=== PATIENT | female | born 1945 | race Hispanic/Latino ===

== ENCOUNTER 2017-08-13 06:49 | Observation (INO) | payer MEDICARE ==
[2017-08-13 07:54] LABS: Basophils % (Auto) 0.7 % (0.0-1.8); Eosinophils % (Auto) 2.8 % (0.0-4.3); Hematocrit 34.1 % (30.3-42.9); Hemoglobin 11.7 gm/dl (10.1-14.3); Mean Corpuscular HGB Conc 34 % (30-34); Mean Corpuscular Hemoglobin 31 pg (28-32); Mean Corpuscular Volume 90 fl (79-97); Platelet Count 229 K/mm3 (140-440); Red Blood Count 3.78 M/mm3 (3.65-5.03); Red Cell Distribution Width 13.5 % (13.2-15.2)
[2017-08-13] MEDS ORDERED: ECOTRIN PO ONE (08:00)
[2017-08-13] MEDS ORDERED: NACL 0.9% 500 ML 500 ML IV SCH (08:00)
[2017-08-13 08:02] LABS: INR 0.97 (0.87-1.13)
[2017-08-13 08:05] LABS: Calcium 9.9 mg/dL (8.4-10.2); Chloride 99.3 mmol/L (98-107)
[2017-08-13] MEDS: PLAVIX PO SCH (09:08)
[2017-08-13] MEDS ORDERED: HEPARIN/NS 5000 UNIT/500ML(CATH LAB) 1,500 ML IR ONE (09:38)
[2017-08-13] MEDS ORDERED: XYLOCAINE 1% 20 mL ONE (09:38)
[2017-08-13] MEDS: VERSED ONE ×3 (10:01→10:29)
[2017-08-13] MEDS: SUBLIMAZE ONE ×3 (10:01→10:29)
[2017-08-13] MEDS: HEPARIN 10,000 UNITS/10 ML ONE ×3 (10:26→11:10)
[2017-08-13] MEDS: NITROGLYCERIN SYRINGE 6 ML ONE ×2 (10:38→10:41)
[2017-08-13] MEDS ORDERED: PLAVIX ONE (11:10)
[2017-08-13] MEDS ORDERED: SUBLIMAZE ONE (11:10)
[2017-08-13] MEDS ORDERED: ALUM-MAG HYDROX-SIMETH 200-200-20MG/5ML ONE (11:11)
[2017-08-13] MEDS ORDERED: ULTRAM PO PRN (11:26)
[2017-08-13] MEDS ORDERED: ZOFRAN IV PRN (11:26)
[2017-08-13] MEDS ORDERED: AMBIEN PO PRN (11:26)
--- NOTE | 2017-08-13 11:38 | Event Note ---
Date: 08/13/17 Patient presented for outptaient R/l cath. Findings: 1. 100% occlusive instent restenosis of the mid LAD. 2. Successful PCI with additional 2.75-3.5mm DE stents deployed. 3. LVEF 65-70%. Plan: Overnight observation 23 hrs. Discharge tomorrow. On discharge, needs addition of atorvastatin to current home regimen.
[2017-08-13] MEDS ORDERED: NACL 0.9% 1000 ML 1,000 ML IV SCH (12:00)
[2017-08-13] MEDS: ZESTRIL PO SCH (12:14)
[2017-08-13] MEDS: IMDUR PO SCH (12:14)
--- NOTE | 2017-08-13 12:35 | Cardiac Catherization Report ---
CARDIAC CATHETERIZATION AND CORONARY ANGIOPLASTY PROCEDURES PERFORMED: 1. Right heart catheterization. 2. Left heart catheterization. 3. Selective left and right coronary angiography. 4. Left ventricular angiography. 5. Angioplasty and coronary stenting of the mid left anterior descending artery. The patient was referred for right and left heart catheterization due to progressive exertional shortness of breath. It was noted that she has a history of coronary artery disease with previous 2.5 mm Xience drug-eluting stent deployed to the mid LAD in 2010. DESCRIPTION OF PROCEDURE: The patient was prepped and draped in a sterile fashion after informed consent. The right femoral artery and vein were both entered using the Seldinger technique. A 6-Welsh sheath was placed in the artery and an 8 Welsh sheath in the vein. A [place]-Jordyn catheter was advanced through the femoral vein, to the pulmonary artery position. Following that, a pigtail catheter was inserted into the femoral artery and retrograde into the left ventricle. Simultaneous right and left heart filling pressures were measured. Cardiac output was measured using the thermodilution method. The [place]-Jordyn catheter was then withdrawn and right heart pressures were recorded. The pigtail was then used to perform left ventricular angiography, following which it was withdrawn and transaortic pressure gradient was recorded. We then performed selective left and right coronary angiography using #4 right and left Montrell catheters. FINDINGS: HEMODYNAMICS: Mean right atrial pressure was 15. Right ventricular pressure was 48/20. Pulmonary artery pressure was 50/30. The mean pulmonary artery wedge pressure was 25, with V waves of 35. Left ventricular end diastolic pressure was 25. Ascending aortic pressure was 190/98. There was no significant pressure gradient on pullback across the aortic valve. Cardiac output was 4.1 liters per minute. CORONARY ANGIOGRAPHY: The left main coronary artery was angiographically normal. The left anterior descending artery was occluded in its mid segment. This was a long segment of complete occlusion of the mid LAD within the previous stent. The occlusion had the appearance of diffuse occlusive in-stent restenosis. It will be noted that the proximal stent border was adjacent to a large mid diagonal branch of the LAD. There was mild narrowing of the ostium of the mid diagonal branch. The circumflex artery and its obtuse marginal branches contained mild diffuse irregularities. The right coronary artery was dominant. This vessel contained a long segment of mild mid disease, with a 20-30% luminal stenosis. Otherwise, these vessel fed collaterals to the mid and distal LAD beyond the occluded mid LAD segment. There was normal left ventricular systolic function with ejection fraction 65-70%. Notably, there was normal wall motion of the anterior wall and apex of the left ventricle. CORONARY ANGIOPLASTY: After review of the angiograms, and noting significant viability of the anterior wall of the left ventricle despite the chronic total occlusion, we recommended ad hoc coronary angioplasty of the mid LAD, occlusive in-stent restenosis. We selected a number 3.5 XB guiding catheter and advanced to the left coronary ostium. A 0.014 inch ____ wire was then advanced into the ventricle, successfully penetrating through the occluded mid segment. Following wire placement in the distal vessel, we used a 2.5 mm balloon catheter to predilate the stenosis. Following predilatation, we reestablished MARTINA 3 flow to the LAD. There was significant residual disease and diffuse scar tissue within the occluded segment. We then deployed a 2.75 x 26 mm Resolute drug-eluting stent, covering the entire lesional segment and beyond the previous stent border. Following deployment of the first stent, we deployed another guidewire into the diagonal branch. We then followed this with another 3.5 x 12 mm Resolute stent into the mid LAD, in juxtaposition to the proximal border of the previous stent. The 3.5 stent was then deployed to optimal pressures. The side branch guidewire was then retrieved, and reinserted into the side branch, following which a 2.5 mm balloon catheter was used to dilate the ostium of the diagonal branch through the stent struts. Both wires were then retrieved, and post-intervention angiograms revealed an excellent angiographic result, 0 residual stenosis through the LAD, 0 residual stenosis of the ostium of the diagonal branch, and MARTINA 3 flow into both vessels. The procedure was well tolerated by the patient and there were no complications. CONCLUSION: 1. Moderate to severe increase in right and left heart filling pressures, moderate pulmonary hypertension. 2. V waves on pulmonary arterial wedge pressure, consider echocardiography for assessment of mitral regurgitation. 3. Coronary artery disease with 100% occlusive restenosis of the mid LAD stent. The index stent dates back to 2010. 4. Normal to hyperdynamic left ventricular systolic function with ejection fraction 65-70%. Viability of the anterior wall is established by normal wall motion. 5. Successful ad hoc angioplasty and stenting of the mid LAD, excellent angiographic result with deployment of additional serial 2.75-3.5 mm Resolute drug-eluting stents. JOB# [id number] MARTA/CHRISTIANA
[2017-08-13] MEDS: LEXAPRO PO SCH (15:37)
[2017-08-13] MEDS: LOPRESSOR PO SCH ×2 (16:01→22:37)
[2017-08-13] MEDS ORDERED: NEURONTIN PO SCH (18:00)
[2017-08-14 06:09] LABS: Basophils % (Auto) 0.6 % (0.0-1.8); Eosinophils % (Auto) 2.5 % (0.0-4.3); Hematocrit 32.3 % (30.3-42.9); Mean Corpuscular HGB Conc 34 % (30-34); Mean Corpuscular Hemoglobin 31 pg (28-32); Mean Corpuscular Volume 90 fl (79-97); Platelet Count 233 K/mm3 (140-440); Red Blood Count 3.61 M/mm3 (3.65-5.03); Red Cell Distribution Width 13.7 % (13.2-15.2); White Blood Count 7.9 K/mm3 (4.5-11.0)
[2017-08-14 06:29] LABS: Creatine Kinase MB 1.1 ng/mL (0.0-4.0)
[2017-08-14 06:33] LABS: Anion Gap 19 mmol/L; BUN/Creatinine Ratio 11; Blood Urea Nitrogen 15 mg/dL (7-17); Calcium 9.8 mg/dL (8.4-10.2); Carbon Dioxide 26 mmol/L (22-30); Chloride 104.1 mmol/L (98-107); Creatine Kinase 68 units/L (30-135); Glucose 155 mg/dL (65-100); Sodium 144 mmol/L (137-145)
[2017-08-14 06:37] LABS: Potassium 4.9 mmol/L (3.6-5.0)
--- NOTE | 2017-08-14 08:07 | XRay Report ---
AP chest x-ray. History: Post PCI. Findings: The heart and lungs reveal no acute or significant abnormalities.
[2017-08-14] MEDS: LEXAPRO PO SCH (09:22)
[2017-08-14] MEDS: IMDUR PO SCH (09:22)
[2017-08-14] MEDS: PLAVIX PO SCH (09:23)
[2017-08-14] MEDS: ZESTRIL PO SCH (09:23)
[2017-08-14] MEDS: LOPRESSOR PO SCH (09:24)
[2017-08-14 09:25] VITALS: BP 128/58
[2017-08-14] MEDS ORDERED: ECOTRIN PO SCH (10:00)
--- NOTE | 2017-08-14 11:20 | Short Stay Summary ---
Short Stay Documentation Date of service: 08/14/17 - History H&P: obtained from office - Allergies and Medications Current Medications: Allergies No Known Allergies Allergy (Unverified 08/13/17 06:49) Home Medications Medication Instructions Recorded Confirmed Last Taken Type Aspirin EC [Aspirin Enteric Coated 325 mg PO DAILY 08/13/17 08/13/17 08/13/17 07 :00 History TAB] 325mg Clopidogrel Bisulfate [Plavix] 75 mg PO DAILY 08/13/17 08/13/17 08/13/17 08:08 History DULoxetine [Cymbalta] 90 mg PO DAILY 08/13/17 08/13/17 08/12/17 History 90mg Escitalopram Oxalate [Lexapro] 20 mg PO DAILY 08/13/17 08/13/17 08/12/17 History 20mg Famotidine [Pepcid] 40 mg PO DAILY 08/13/17 08/13/17 08/12/17 History 40mg Gabapentin [Gralise] 300 mg PO DAILY 08/13/17 08/13/17 08/12/17 History 300mg Glimepiride [Amaryl] 2 mg PO DAILY 08/13/17 08/13/17 08/12/17 History 2mg ISOSORBIDE MONOnitrate [Imdur ER] 30 mg PO DAILY 08/13/17 08/13/17 08/12/17 History 30mg Levothyroxine [Synthroid] 88 mcg PO DAILY 08/13/17 08/13/17 08/12/17 History 88mcg Lisinopril [Zestril] 20 mg PO DAILY 08/13/17 08/13/17 08/12/17 History 20mg Metformin HCl [Glucophage] 1,000 mg PO BID 08/13/17 08/13/17 08/11/17 History 1000mg Metoprolol Xl [Metoprolol 1.5 tab PO DAILY 08/13/17 08/13/17 08/13/17 06:00 History SUCCINATE ER TAB] Nitroglycerin [Nitrostat] 0.4 mg SL PRN PRN 08/13/17 08/13/17 08/06/17 History 0.4mg Omeprazole [Omeprazole] 20 mg PO DAILY 08/13/17 08/13/17 08/12/17 History 20mg Vit D3-Vit K/Berberine/Hops 1 tab PO DAILY 08/13/17 08/13/17 08/12/17 History 1 tab busPIRone [Buspar] 10 mg PO TID 08/13/17 08/13/17 08/12/17 History 10mg traMADol [Ultram 50 MG tab] 50 mg PO QID 08/13/17 08/13/17 08/12/17 History 50mg Rosuvastatin (Nf) [Crestor] 20 mg PO QHS 08/14/17 08/14/17 Unknown History Active Medications Aspirin (Ecotrin) 325 mg PO QDAY [facility] Last Admin: 08/14/17 09:23 Dose: 325 mg Atorvastatin Calcium (Lipitor) 40 mg PO QHS [facility] Last Admin: 08/13/17 22:37 Dose: 40 mg Clopidogrel Bisulfate (Plavix) 75 mg PO QDAY [facility] Last Admin: 08/14/17 09:23 Dose: 75 mg Escitalopram Oxalate (Lexapro) 20 mg PO QDAY [facility] Last Admin: 08/14/17 09:22 Dose: 20 mg Gabapentin (Neurontin) 300 mg PO QPM [facility] Last Admin: 08/13/17 17:53 Dose: 300 mg Insulin Human Regular (Novolin R) 0 units SUB-Q ACHS [facility] PRN Reason: Protocol Last Admin: 08/14/17 08:32 Dose: 2 units Isosorbide Mononitrate (Imdur) 30 mg PO QDAY [facility] Last Admin: 08/14/17 09:22 Dose: 30 mg Lisinopril (Zestril) 40 mg PO QDAY [facility] Last Admin: 08/14/17 09:23 Dose: 40 mg Metoprolol Tartrate (Lopressor) 50 mg PO BID [facility] Last Admin: 08/14/17 09:24 Dose: 50 mg Ondansetron HCl (Zofran) 4 mg IV Q8H PRN PRN Reason: N/V unrelieved by Reglan Tramadol HCl (Ultram) 50 mg PO Q4H PRN PRN Reason: Pain, Mild (1-3) Last Admin: 08/13/17 12:15 Dose: 50 mg Zolpidem Tartrate (Ambien) 5 mg PO QHS PRN PRN Reason: Sleep - Physical exam General appearance: no acute distress HEENT: PERRLA Lungs: Clear to auscultation Heart: Regular rate - Brief post op/procedure progress note Condition: stable - Hospital course Hospital course: Stable overnight observation. - Disposition Condition at discharge: Good Disposition: [id number] TO HOME OR SELFCARE Short Stay Discharge Plan Activity: advance as tolerated Diet: low fat, low cholesterol, low salt, diabetic Special Instructions: no heavy lifting (for 48-72hrs.) Durable Medical Equipment Needed Upon Discharge: other (Hold Metformin for 48hrs post cardiac cath then resume dosing as ordered.) Follow up with: ZHENG CASTILLO MD [Staff Physician] - 7 Days WAI BHAGAT MD [Primary Care Provider] - 7 Days CORWIN CIFUENTES MD [Staff Physician] - 7 Days Forms: CardCath PCI D/C Instructions
== END 2017-08-14 12:52 | disposition home or self-care (01) ==
LOC: CATHLABREC 06:49 → 4A 11:27
PROVIDERS: ADMIT Internal Medicine Cardiovascular Disease; ATTEND Internal Medicine Cardiovascular Disease
DX: I25.10 Atherosclerotic heart disease of native coronary artery without angina pectoris (principal); R00.0 Tachycardia, unspecified; R00.2 Palpitations; I10 Essential (primary) hypertension; I34.0 Nonrheumatic mitral (valve) insufficiency; I36.1 Nonrheumatic tricuspid (valve) insufficiency; R06.00 Dyspnea, unspecified; I99.9 Unspecified disorder of circulatory system
CPT/HCPCS: 36415; 71010; 80048; 82550; 82553; 82962; 84484; 85025; 85347; 85610; 85730; 92921; 93005; 93010; 93460; 96372; A9270; C1725; C1769; C1874; C1887; C1894; C9600; G0378; J1644; J2250; J3010; J7030; J7040; 92928; Q9967